=== PATIENT | male | born 1995 | race Caucasian/White ===

== ENCOUNTER 2023-08-21 18:58 | Emergency (ER) | payer SELFPAY ==
[~2023-08-21] VITALS: Ht 167.6 cm; Wt 77.0 kg
[2023-08-21] MEDS ORDERED: PROPOFOL 10MG/ML 100ML 100 ML IV ONE (20:15)
[2023-08-21] MEDS ORDERED: ONDANSETRON HCL 4MG/2ML INJ IV ONE (20:15)
[2023-08-21] MEDS ORDERED: MORPHINE SULFATE 4 MG/ML INJ (FOR IV/IM USE) IV ONE (20:15)
[2023-08-21] MEDS ORDERED: NALOXONE HCL 1MG/ML 2ML VIAL IV ONE (21:00)
[2023-08-21 21:11] VITALS: O2SAT 98
[2023-08-21] MEDS ORDERED: NALOXONE HCL 1MG/ML 2ML VIAL ONE ×2 (21:35→21:38)
[2023-08-21 22:12] VITALS: BP 127/82; PULSE 69; RESP 15; TEMP 98.5
[2023-08-21] MEDS ORDERED: IBUP-1523 MT (23:16)
[2023-08-21] MEDS ORDERED: TOPUD MT (23:16)
[2023-08-21] MEDS ORDERED: ONDA4TAB50 MT (23:16)
== END 2023-08-21 23:32 | disposition left against medical advice (07) ==
LOC: ER 18:58
DX: S43.004A Unspecified dislocation of right shoulder joint, initial encounter (principal); X58.XXXA Exposure to other specified factors, initial encounter; Y93.89 Activity, other specified; Y92.89 Other specified places as the place of occurrence of the external cause; Y99.8 Other external cause status
CPT/HCPCS: 73030; 23650; 99152; 99285; J2310; J2405; J2704; J2270; Z7610; L3670